=== PATIENT | female | born 1965 | race Two or more races ===

== ENCOUNTER 2025-09-02 12:12 | Emergency (ER) | payer OTHER ==
[~2025-09-02] VITALS: Ht 162.6 cm; Wt 74.8 kg
[2025-09-02 12:30] VITALS: BP 119/60; O2SAT 99
[2025-09-02] MEDS ORDERED: NOREPINEPHRINE BITARTRATE 8 MG in DEXTROSE 5 % IN WATER 250 ML IV SCH (14:30)
[2025-09-02] MEDS ORDERED: MIDAZOLAM HCL 50 MG/10 ML VIAL IV SCH (14:45)
[2025-09-02] MEDS ORDERED: LEVALBUTEROL HCL 0.63 MG/3 ML SOLUTION IH ONE (14:45)
[2025-09-02] MEDS ORDERED: PIPERACILLIN/TAZOBACTAM SODIUM 2.25 GM VIAL IV ONE (14:45)
[2025-09-02] MEDS ORDERED: 0.9 % SODIUM CHLORIDE 1,000 ML IV SCH (14:45)
[2025-09-02] MEDS ORDERED: ATROPINE SULFATE 0.1 MG/ML DISP.SYRIN IV STA (16:43)
[2025-09-02] MEDS ORDERED: SODIUM BICARBONATE 1 MEQ/ML DISP.SYRIN 50ML IV STA ×2 (16:43→16:44)
[2025-09-02] MEDS ORDERED: EPINEPHRINE HCL/PF 1 MG/ML AMPUL IV PUSH SCH (16:45)
[2025-09-02] MEDS ORDERED: LEVALBUTEROL HCL 0.63 MG/3 ML SOLUTION IH SCH (17:00)
== END 2025-09-02 23:10 | disposition expired ==
LOC: ER 12:12
DX: R10.9 Unspecified abdominal pain (principal); K52.89 Other specified noninfective gastroenteritis and colitis; J44.9 Chronic obstructive pulmonary disease, unspecified; I48.91 Unspecified atrial fibrillation; I12.0 Hypertensive chronic kidney disease with stage 5 chronic kidney disease or end stage renal disease; N18.6 End stage renal disease
CPT/HCPCS: 31500; 71045; 92950; 94002; 94003 ×5; 96365; 96366; 99291; J0461; J1650; J2543